=== PATIENT | female | born 1975 | race Caucasian/White ===

== ENCOUNTER 2018-03-26 23:23 | Emergency (ER) | payer BC ==
[~2018-03-26] VITALS: Ht 172.7 cm; Wt 59.9 kg
[2018-03-27 00:03] VITALS: BP 125/75
[2018-03-27] MEDS ORDERED: SOLU-MEDROL ONE (00:05)
[2018-03-27] MEDS ORDERED: NORFLEX ONE ×2 (00:06→00:18)
[2018-03-27] MEDS ORDERED: SOLU-MEDROL IM STA (00:13)
[2018-03-27] MEDS ORDERED: NORFLEX IM STA (00:13)
--- NOTE | 2018-03-27 00:25 | ER.PDOC ---
General Chief Complaint: Extremities Stated Complaint: L CALF PAIN Time seen by MD: 23:52 Source: patient Exam Limitations: no limitations History of Present Illness Initial Comments Pt with intermittent pain on left calf since Thursday, there is no warmth or cord. She got a shot of 60 mg toradol, which did not help, and is getting steadier and more intense Onset: last week Recent Injury: No Where: home Severity: severe Exacerbated By: nothing Relieved By: nothing Past Medical History Medical History: no pertinent history Surgical History: cholecystectomy LMP (females 10-50): 2 months Social History Smoking: non-smoker Alcohol Use: none Drug Use: none Review of Systems Constitutional: denies no symptoms reported, denies see HPI, denies chills, denies diaphoresis, denies fever, denies malaise, denies weakness, denies other EENTM: denies no symptoms reported, denies see HPI, denies eye pain, denies blurred vision, denies tearing, denies double vision, denies ear pain, denies ear discharge, denies nose pain, denies nose congestion, denies throat pain, denies throat swelling, denies mouth pain, denies mouth swelling, denies other Respiratory: denies no symptoms reported, denies see HPI, denies cough, denies orthopnea, denies shortness of breath, denies stridor, denies wheezing, denies other Cardiovascular: denies no symptoms reported, denies see HPI, denies chest pain , denies edema, denies palpitations, denies syncope, denies other Gastrointestinal: denies no symptoms reported, denies see HPI, denies abdominal pain, denies constipation, denies diarrhea, denies nausea, denies vomiting, denies other Genitourinary: denies no symptoms reported, denies see HPI, denies discharge, denies dysuria, denies frequency, denies hematuria, denies pain, denies other Musculoskeletal: see HPI Skin: denies no symptoms reported, denies see HPI, denies change in color, denies change in hair/nails, denies dryness, denies lesions, denies lumps, denies rash, denies other Psychiatric/Neurological: denies no symptoms reported, denies see HPI, denies anxiety, denies depressed, denies emotional problems, denies headache, denies numbness, denies paresthesia, denies pre-existing deficit, denies seizure, denies tingling, denies tremors, denies weakness, denies other Physical Exam General Appearance: Alert, No Apparent Distress Lower Extremity: nml inspection, non-tender, no pedal edema Joint Exam: joints nml, nml ROM, nml gait/weight bearing Vascular: no vascular compromise, pulses full/equal Neuro/Psych: sensation nml, motor nml, oriented x3, CN's nml as tested, mood/ affect nml Skin: color nml, warm/dry, no rash Back/Neck: nml inspection EENT: eyes inspection nml, ENT inspection nml, pharynx nml Respiratory: no resp distress, breath sounds nml CVS: reg rate & rhythm, heart sounds nml Abdomen: non-tender, no organomegaly, no bruit/mass Departure Time of Disposition: 01:26 Disposition: 01 HOME, SELF-CARE Impression: Primary Impression: Muscle cramps Condition: Stable Patient Instructions: Muscle Cramps, [id number] Referrals: PCP,UNKNOWN (PCP) PRIMARY CARE PROVIDER Duration or Time Spent with Pa: 20 NADYA KRISHNAMURTHY MD Mar 27, 2018 00:24
--- NOTE | 2018-03-27 00:26 | NUR ---
US CALLED [facility] FOR US AND NOTIFIED OF ORDER FOR VENOUS DOPPLAR.
[2018-03-27 01:01] VITALS: BP 116/67
--- NOTE | 2018-03-27 01:37 | DIREP ---
PROCEDURE:US DUPLEX EXTREM VEINS UNILATER/LIMITED-LT COMPARISON:None. INDICATIONS:possible DVT TECHNIQUE:The left lower extremity was evaluated utilizing espinoza scale images with segmental compression, color Doppler, and spectral Doppler with respiratory variation and augmentation. FINDINGS: Common femoral vein:Patent Superficial femoral vein:Patent Popliteal vein:Patent Posterior tibial vein:Patent Greater saphenous vein:Patent Waveforms: Within normal limits. CONCLUSION:No evidence of left lower extremity deep venous thrombus Dictated by: López Nichols MD on 03/27/2018 at 01:34 AM
[2018-03-27 02:00] VITALS: BP 125/75
== END 2018-03-27 01:41 | disposition home or self-care (01) ==
LOC: ER 23:23
DX: R25.2 Cramp and spasm (principal); Z90.49 Acquired absence of other specified parts of digestive tract
CPT/HCPCS: 99285; J2360; J2930; 93971